=== PATIENT | female | born 1965 | race African-American/Black ===

== ENCOUNTER 2022-09-17 01:03 | Day surgery (SDC) | payer OTHER, SELFPAY ==
[2022-09-12 13:53] VITALS: BMI 44.1
[2022-09-17 07:42] VITALS: BP 144/91; PULSE 70; RESP 16; TEMP 36; O2SAT 100; BMI 44.0
[2022-09-17] MEDS: LACTATED RINGERS 1,000 ML 150 ML IV CONT (07:55)
--- NOTE | 2022-09-17 08:20 | PM.HPGS ---
History of Present Illness History of Present Illness Consent: Risks, benefits, and alternatives have been discussed and questions answered. Patient agrees to proceed with procedure. Chief complaint: epigastric pain Narrative: Augustine Alvarez is a 56 year old female Presents for EGD. Patient's current weight appetite bowel movements are normal. She denies abdominal pain. She has had no bleeding. Patient has a history of gastric bypass surgery. She has episodes of epigastric discomfort that will last for brief interval sometimes 1-2 days. Sometimes just for several moments. Episodes occur several times a month. She has no weight loss. She has no bleeding. Empiric trial of medications and antacids has failed alleviate these intermittent symptoms. She feels as though this sensation is like a tearing across her upper abdomen. She presents today for EGD to assess more thoroughly. Review of Systems Review of Systems: Review of systems noncontributory. [facility] Past Medical History Medical History (Updated 08/15/22 @ 11:32 by Kennedy Crystal MD) Chronic ankle pain HTN (hypertension) Hx of iron deficiency anemia Hx of osteoarthritis Insomnia associated with menopause Microscopic hematuria Migraines Vitamin D deficiency Surgical History Surgical History (Updated 08/15/22 @ 11:32 by Kennedy Crystal MD) History of ankle surgery Hx of arthroscopy of shoulder Hx of cholecystectomy Hx of cystoscopy Hx of gastric bypass Hx of tubal ligation Family History Family History Mother Gastric cancer Hypertension Diabetes mellitus Cerebrovascular accident Father Hematologic malignancy Kidney failure Malignant neoplasm of prostate Sibling Diabetes mellitus Sibling Hypertension Migraines Social History Social History Years smoked: 10 Smoking status: Former smoker Tobacco type: cigarettes Alcohol intake: never Alcohol use details: social Substance use: never Substance use type: does not use Living arrangements: with family Spiritual care concerns: No Meds Home Medications and Allergies Home Medications Medication Instructions Recorded Confirmed Type amlodipine 10 mg tablet 10 mg PO DAILY 08/06/22 09/17/22 History famotidine 20 mg tablet 20 mg PO .PRN 08/06/22 09/17/22 History magnesium oxide 400 mg PO DAILY 08/06/22 09/17/22 History mecobalamin (vitamin B12) 1,000 1,000 mcg PO DAILY 08/06/22 09/17/22 History mcg chewable tablet multivitamin 1 tablet PO DAILY 08/06/22 09/17/22 History phentermine 7.5 mg-topiramate ER 1 cap PO DAILY 08/06/22 09/17/22 History 46 mg capsule,ext.release 24hr mphase (Qsymia) potassium gluconate 595 mg (99 mg) 595 mg PO DAILY 08/06/22 09/17/22 History tablet Allergies Allergy/AdvReac Type Severity Reaction Status Date / Time albuterol AdvReac Mild Muscle Verified 09/17/22 07:41 Spasms meloxicam [From Mobic] AdvReac Mild Heart Verified 09/17/22 07:41 racing zolpidem [From Ambien] AdvReac Mild Sleep Verified 09/17/22 07:41 eating Vital Signs Vital Signs - 24 hr 09/17/22 07:42 Temperature 96.8 F L Pulse Rate 70 Respiratory Rate 16 Blood Pressure 144/91 H Pulse Oximetry 100 Oxygen Delivery Room Air Exam Narrative: Physical exam reveals patient to be alert. Vital signs stable. HEENT exam is unremarkable. Patient is anicteric. Lungs are clear to auscultation and percussion. Heart is without murmur or extra sounds. Abdomen is obese. Bowel sounds are present soft nontender with no organomegaly. Assessment and Plan Assessment and plan (1) Epigastric abdominal pain: Code(s): R10.13 - Epigastric pain Status: Acute Assessment and Plan: Patient with intermittent epigastric pain of on certain etiology. Plan for EGD to assess more thoroughly. Recommend frequent
--- NOTE | 2022-09-17 08:28 | WPDANESEPPF ---
Anes - Initial Pre Proc Eval Procedure: Operation Date: 09/17/22 09:00 Proposed Procedures p Esophagogastroduodenoscopy EGD - Kennedy Crystal MD Date/Time: 09/17/22 08:28 Surgeon: Kennedy Crystal MD Pre Op Diagnosis: epigastric pain Patient Data Age: 56 Gender: F Height: 1.7 m Weight: 127.5 kg Last Vital Signs Temp 36.0 C L 09/17/22 07:42 Pulse 70 09/17/22 07:42 Resp 16 09/17/22 07:42 BP 144/91 H 09/17/22 07:42 Pulse Ox 100 09/17/22 07:42 O2 Del Method Room Air 09/17/22 07:42 Allergies Allergy/AdvReac Type Severity Reaction Status Date / Time albuterol AdvReac Mild Muscle Verified 09/17/22 07:41 Spasms meloxicam [From Mobic] AdvReac Mild Heart Verified 09/17/22 07:41 racing zolpidem [From Ambien] AdvReac Mild Sleep Verified 09/17/22 07:41 eating Home Medications Medication Instructions Recorded Confirmed Type amlodipine 10 mg tablet 10 mg PO DAILY 08/06/22 09/17/22 History famotidine 20 mg tablet 20 mg PO .PRN 08/06/22 09/17/22 History magnesium oxide 400 mg PO DAILY 08/06/22 09/17/22 History mecobalamin (vitamin B12) 1,000 1,000 mcg PO DAILY 08/06/22 09/17/22 History mcg chewable tablet multivitamin 1 tablet PO DAILY 08/06/22 09/17/22 History phentermine 7.5 mg-topiramate ER 1 cap PO DAILY 08/06/22 09/17/22 History 46 mg capsule,ext.release 24hr mphase (Qsymia) potassium gluconate 595 mg (99 mg) 595 mg PO DAILY 08/06/22 09/17/22 History tablet Patient hx anesthesia problems: none Family hx anesthesia problems: none Results Review: All pre-operative results and documents have been reviewed as part of the pre-operative evaluation. [facility] Past Medical History Medical History Chronic ankle pain HTN (hypertension) Hx of iron deficiency anemia Hx of osteoarthritis Insomnia associated with menopause Microscopic hematuria Migraines Vitamin D deficiency Surgical History Surgical History History of ankle surgery Hx of arthroscopy of shoulder Hx of cholecystectomy Hx of cystoscopy Hx of gastric bypass Hx of tubal ligation Family History Family History Mother Gastric cancer Hypertension Diabetes mellitus Cerebrovascular accident Father Hematologic malignancy Kidney failure Malignant neoplasm of prostate Sibling Diabetes mellitus Sibling Hypertension Migraines Social History Social History Years smoked: 10 Smoking status: Former smoker Tobacco type: cigarettes Alcohol intake: never Alcohol use details: social Substance use: never Substance use type: does not use Living arrangements: with family Spiritual care concerns: No Anes - Eval Final PreProcedure Day of Procedure 09/17/22 08:28 Patient weight: morbidly obese Heart: regular rate and rhythm Lungs: clear to auscultation Airway: Mallampati scale class II Neurological: alert and oriented Last oral intake: >/= 8 hours ASA classification: III Emergent: no Anesthesia type and monitoring: general GIVS and standard monitoring Results Review: All pre-operative results and documents have been reviewed as part of the pre-operative evaluation. Informed Consent: The patient's anesthetic plan and its attendant risks and benefits were discussed with the patient/family/POA. Questions were solicited and answers provided to the satisfaction of the patient/family/POA.
[2022-09-17 09:23] VITALS: BP 110/77; PULSE 82; RESP 23; O2SAT 99
[2022-09-17 09:33] VITALS: BP 119/71; PULSE 83; RESP 29; O2SAT 97
[2022-09-17 09:43] VITALS: BP 124/73; PULSE 74; RESP 26; O2SAT 100
== END 2022-09-17 09:48 | disposition home or self-care (01) ==
PROVIDERS: PCP Internal Medicine; Visit Provider Internal Medicine Gastroenterology
PROC: 0DJ08ZZ Inspection of Upper Intestinal Tract, Via Natural or Artificial Opening Endoscopic (ICD-10-PCS; CPT 43235; principal; 2022-09-17 09:00)
DX: R10.13 Epigastric pain (principal); Z98.84 Bariatric surgery status; I10 Essential (primary) hypertension; Z87.891 Personal history of nicotine dependence; E66.01 Morbid (severe) obesity due to excess calories; Z68.41 Body mass index [BMI] 40.0-44.9, adult
CPT/HCPCS: 43239; 87081; J2704; J7120